=== PATIENT | male | born 1940 | race Caucasian/White ===

== ENCOUNTER 2017-01-18 05:28 | Inpatient (IN) | payer OTHER, MEDICARE ==
[~2017-01-18] VITALS: Ht 167.6 cm; Wt 82.7 kg
[2017-01-18] VITALS (8 sets, daily range): BP systolic 110–169; BP diastolic 58–82; PULSE 55–86; RESP 15–20; TEMP 96–98.6; O2SAT 96–99
[~2017-01-18 05:28] MED LIST: APIX2.5T PO; ATEN-104 PO; ATOR80TA PO; BECL80AE3 INH; CO Q100C9 PO; ENAL10TA7 PO; EZET10 PO; FAMO40TA PO; FISH1000 PO; GLUC500C3 PO; IMDU120T PO; NORC7.5T PO; Z.0.COMMODE-3:1; Z.0.CPM; Z.0.WALKERFRONT
[2017-01-18] MEDS ORDERED: ONDANSETRON HCL 4 MG/2 ML VIAL IVP ONE (05:45)
[2017-01-18] MEDS ORDERED: MORPHINE SULFATE 4 MG/ML INJ IV PUSH ONE ×2 (05:45→06:15)
[2017-01-18] MEDS ORDERED: SODIUM CHLORIDE 0.9% FLUSH 10 ML FLUSH IV FLUSH PRN ×2 (05:45→07:00)
--- NOTE | 2017-01-18 05:52 | PD ---
HPI Chief Complaint: Abdominal Pain Time Seen by Provider: 05:39 Travel History International Travel<30 days: No Contact w/Intl Traveler<30days: No Traveled to known affect area: No History of Present Illness HPI 76-year-old male presents to the emergency department for complaint of severe abdominal pain radiating to his back that awakened him from sleep with associated diaphoresis. No shortness of breath no chest pain no neck jaw back shoulder arm pain. Patient has history of CAD hypertension dyslipidemia and previous CABG. Patient has family history of aneurysm in his father and is seen frequently for evaluation of aneurysm--patient himself is not diagnosed with abdominal aortic aneurysm. Patient is unable to identify exacerbating or alleviating factors. Patient denies known history of gallstones, biliary colic , peptic ulcer disease, gastritis, pancreatitis, or diverticulitis. Patient denies eating fried or fatty foods at dinner time. Patient went to bed at 11 PM feeling well. Patient's had no fever or chills. Patient denies any vomiting or black or tarry or bloody stools. Patient is unable to identify exacerbating or alleviating factors. Patient does take aspirin and no other anticoagulants. Patient is a nonsmoker of cigarettes and rarely drinks alcoholic beverages. Recent travel from [place] otherwise no long distance travel protracted bedrest or surgical procedure. No history of clotting disorder. No report of dietary indiscretion, well water ingestion, or foreign travel. PFSH Past Medical History Narrative Medical CAD CABG right carotid and no doctor me hypertension dyslipidemia arthritis cataract surgery knee surgery no tobacco use nursing notes reviewed Cancer: No Cardiovascular Problems: Yes (cad) Diabetes: No Endocrine: No Genitourinary: No Hepatitis: No Hiatal Hernia: No Immune Disorder: No Musculoskeletal: Yes (arthritis) Neurologic: No Psychiatric: No Reproductive: No Respiratory: Yes Thyroid Disease: No Past Surgical History Abdominal Surgery: No AICD: No Body Medical Devices: left knee could be a small piece of hardware Cardiac Surgery: Yes (x4 cardiac by-pass surgery) Ear Surgery: Yes (KADEN. 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 CRAZY Uncoded Allergies: vee (Allergy, Unknown, upset stomach, 09/30/15) Reported Meds & Prescriptions Reported Meds & Active Scripts Active Reported Co Q 10 (Coenzyme Q10 (Ubidecarenone)) 100 Mg-5 Unit Cap 100 Mg PO DAILY Vitamin D3 (Cholecalciferol) 1,000 Unit Tab 1,000 Units PO DAILY Calcium 600 with Vitamin D (Calcium Carbonate-Cholecalciferol) 600-400 mg-Unit Tab 1 Tab PO DAILY Aspirin 81 Mg Chew 162 Mg CHEW DAILY Qvar Inh (Beclomethasone Dipropionate) 80 Mcg/Act Aero 1 Puff INH BID Famotidine 40 Mg Tab 40 Mg PO HS Atorvastatin (Atorvastatin Calcium) 80 Mg Tab 80 Mg PO HS Zetia (Ezetimibe) 10 Mg Tab 10 Mg PO DAILY Atenolol 100 Mg Tab 100 Mg PO DAILY Enalapril (Enalapril Maleate) 10 Mg Tab 10 Mg PO DAILY Isosorbide Mononitrate ER (Isosorbide Mononitrate) 120 Mg Hannah 120 Mg PO DAILY Review of Systems Except as stated in HPI: all other systems reviewed are Neg General / Constitutional: No: Fever, Chills HENT: No: Congestion Cardiovascular: No: Chest Pain or Discomfort Respiratory: No: Shortness of Breath Gastrointestinal: Positive: Nausea, Abdominal Pain, No: Vomiting, Diarrhea, Hematemesis, Hematochezia, Loss of Appetite Genitourinary: No: Dysuria, Flank Pain Musculoskeletal: No: Pain Skin: No Rash Neurologic: No: Weakness, Dizziness, Syncope Psychiatric: Positive: Anxiety Hematologic/Lymphatic: No: Easy Bruising Physical Exam Narrative GENERAL: Well-developed well-nourished male in obvious discomfort no respiratory distress SKIN: Warm and dry. HEAD: Normocephalic. EYES: No scleral icterus. No injection or drainage. NECK: Supple, trachea midline. No JVD or lymphadenopathy. CARDIOVASCULAR: Regular rate and rhythm without murmurs, gallops, or rubs. RESPIRATORY: Breath sounds equal bilaterally. No accessory muscle use. GASTROINTESTINAL: Abdomen soft, marked epigastric tenderness to direct palpation --exacerbates and reproduces the pain of presentation, voluntary guarding or rebound, nondistended. No palpable pulsatile mass. MUSCULOSKELETAL: No cyanosis, or edema. BACK: Nontender without obvious deformity. No CVA tenderness. Data Data Last Documented VS Vital Signs Date Time Temp Pulse Resp B/P (MAP) Pulse Ox O2 Delivery O2 Flow Rate FiO2 01/18/17 06:46 20 01/18/17 05:59 55 117/58 (77) 99 2.00 110/59 (76) 01/18/17 05:33 97.5 Orders Orders Complete Blood Count With Diff (01/18/17 05:39) Comprehensive Metabolic Panel (01/18/17 05:39) Lipase (01/18/17 05:39) Lactic Acid (01/18/17 05:39) Urinalysis - C+S If Indicated (01/18/17 05:39) Ct Abd/Pel W Iv Contrast(Rout) (01/18/17 05:39) Iv Access Insert/Monitor (01/18/17 05:39) Ecg Monitoring (01/18/17 05:39) Oximetry (01/18/17 05:39) Ondansetron Inj (Zofran Inj) (01/18/17 05:45) Sodium Chloride 0.9% Flush (Ns Flush) (01/18/17 05:45) Electrocardiogram (01/18/17 05:39) Chest, Single Ap (01/18/17 05:39) Sodium Chlor 0.9% 1000 Ml Inj (Ns 1000 M (01/18/17 05:45) Troponin I (01/18/17 05:39) Morphine Inj (Morphine Inj) (01/18/17 05:45) Blood Culture (01/18/17 05:57) Act Partial Throm Time (Ptt) (01/18/17 05:58) Prothrombin Time / Inr (Pt) (01/18/17 05:58) Ckmb (Isoenzyme) Profile (01/18/17 05:55) Magnesium (Mg) (01/18/17 05:55) Sodium Chlorid 0.9% 500 Ml Inj (Ns 500 M (01/18/17 06:15) Morphine Inj (Morphine Inj) (01/18/17 06:15) Pantoprazole Inj (Protonix Inj) (01/18/17 06:15) Iohexol 350 Inj (Omnipaque 350 Inj) (01/18/17 06:40) NPO (01/18/17 06:41) Sodium Chlor 0.9% 1000 Ml Inj (Ns 1000 M (01/18/17 07:00) Admit To Inpatient (01/18/17 ) Vital Signs (Adult) Q4H (01/18/17 06:52) Activity Oob With Assistance (01/18/17 06:52) Diet Npo (01/18/17 Breakfast) Sodium Chlor 0.9% 1000 Ml Inj (Ns 1000 M (01/18/17 06:52) Sodium Chloride 0.9% Flush (Ns Flush) (01/18/17 07:00) Sodium Chloride 0.9% Flush (Ns Flush) (01/18/17 09:00) Acetaminophen (Tylenol) (01/18/17 07:00) Ondansetron Inj (Zofran Inj) (01/18/17 07:00) Basic Metabolic Panel (Bmp) (01/19/17 06:00) Complete Blood Count With Diff (01/19/17 06:00) Heparin Inj (Heparin Inj) (01/18/17 07:00) Naloxone Inj (Narcan Inj) (01/18/17 07:00) Docusate Sodium-Senna (Elisa-Colace) (01/18/17 09:00) Magnesium Hydroxide Liq (Milk Of Magnesi (01/18/17 07:00) Sennosides (Senokot) (01/18/17 07:00) Bisacodyl Supp (Dulcolax Supp) (01/18/17 07:00) Lactulose Liq (Lactulose Liq) (01/18/17 07:00) Inpatient Certification (01/18/17 ) Lipase (01/19/17 06:00) Admit Order (Ed Use Only) (01/18/17 ) Board Certified Family Physician / Telemetry [email or web address].Q8H (01/18/17 06:52) Activity Oob With Assistance (01/18/17 06:52) Notify Dr: Other (01/18/17 06:52) Labs Laboratory Tests Test 01/18/17 05:55 01/18/17 06:00 White Blood Count 11.1 TH/MM3 Red Blood Count 5.06 MIL/MM3 Hemoglobin 15.2 GM/DL Hematocrit 46.5 % Mean Corpuscular Volume 91.9 FL Mean Corpuscular Hemoglobin 30.0 PG Mean Corpuscular Hemoglobin Concent 32.6 % Red Cell Distribution Width 12.2 % Platelet Count 217 TH/MM3 Mean Platelet Volume 9.4 FL Neutrophils (%) (Auto) 47.6 % Lymphocytes (%) (Auto) 20.5 % Monocytes (%) (Auto) 5.2 % Eosinophils (%) (Auto) 25.6 % Basophils (%) (Auto) 1.1 % Neutrophils # (Auto) 5.3 TH/MM3 Lymphocytes # (Auto) 2.3 TH/MM3 Monocytes # (Auto) 0.6 TH/MM3 Eosinophils # (Auto) 2.8 TH/MM3 Basophils # (Auto) 0.1 TH/MM3 CBC Comment DIFF FINAL Differential Comment Blood Urea Nitrogen 16 MG/DL Creatinine 0.83 MG/DL Random Glucose 116 MG/DL Total Protein 7.2 GM/DL Albumin 3.4 GM/DL Calcium Level 8.9 MG/DL Magnesium Level 2.1 MG/DL Alkaline Phosphatase 121 U/L Aspartate Amino Transf (AST/SGOT) 52 U/L Alanine Aminotransferase (ALT/SGPT) 43 U/L Total Bilirubin 0.5 MG/DL Sodium Level 143 MEQ/L Potassium Level 4.1 MEQ/L Chloride Level 108 MEQ/L Carbon Dioxide Level 26.1 MEQ/L Anion Gap 9 MEQ/L Estimat Glomerular Filtration Rate 90 ML/MIN Lactic Acid Level 1.3 mmol/L Total Creatine Kinase 75 U/L Troponin I LESS THAN 0.02 NG/ML Lipase 31052 U/L Prothrombin Time 11.5 SEC Prothromb Time International Ratio 1.1 RATIO Activated Partial Thromboplast Time 25.5 SEC [facility] Medical Decision Making Medical Screen Exam Complete: Yes Emergency Medical Condition: Yes Medical Record Reviewed: Yes Interpretation(s) EKG sinus bradycardia rate [address] elevation or injury pattern change or ectopy noted age-indeterminate Q-wave inferiorly with poor R progression anteriorly V3 V4 Chest x-ray: No acute process no subdiaphragmatic free air no effusion no infiltrate no pneumothorax Lipase: 21,506, elevated Troponin I: Less than 0.02, not elevated; ck: 75, not elevated Lactic: 1.3, not elevated Chest x-ray per reading radiologist reviewed by me shows no acute abnormality CT a/p: pending Differential Diagnosis Abdominal pain ACS AK abdominal aortic aneurysm dissection pancreatitis choledocholithiasis cholecystitis, PUD Narrative Course Patient with history monitoring specialist IV access obtained specimens collected and EKG performed which shows sinus rhythm with no acute ST elevation or injury pattern age-indeterminate Q wave inferiorly in 3 and aVF as well as poor R progression wave progression anteriorly V3 and V4 Q wave in V4 V5. 6:25 AM lipase is resulted at 21,587 markedly elevated LFTs minorly elevated transaminases total bilirubin is within normal limits; gyroscope technician is a bedside taking patient to imaging. Physician Communication Physician Communication call placed to [facility] service -- discussed with Dr Watson --will admit to [facility] service --aware CT reading pending Diagnosis Primary Impression: Pancreatitis, acute Admitting Information Admitting Physician Requests: Admit Lina Wing MD Jan 18, 2017 05:52
[2017-01-18] MEDS: SODIUM CHLOR 0.9% 1000 ML INJ 1,000 ML IV SCH ×4 (05:58→09:34)
[2017-01-18 06:04] LABS: AUTOMATED NEUTROPHIL # 5.3 TH/MM3 (1.8-7.7); BASOPHIL # 0.1 TH/MM3 (0-0.2); BASOPHIL % 1.1 % (0.0-2.0); EOSINOPHIL # 2.8 TH/MM3 (0-0.4); EOSINOPHIL % 25.6 % (0.0-4.0); HEMATOCRIT 46.5 % (39.0-51.0); HEMO FLAGS DIFF FINAL; LYMPH % 20.5 % (9.0-44.0); LYMPHOCYTE # 2.3 TH/MM3 (1.0-4.8); MEAN CELL VOLUME 91.9 FL (80.0-100.0); MEAN CORPUSCULAR HGB CONC 32.6 % (32.0-36.0); MONO % 5.2 % (0.0-8.0); NEUT % 47.6 % (16.0-70.0); PLATELET COUNT 217 TH/MM3 (150-450); RED BLOOD COUNT 5.06 MIL/MM3 (4.50-5.90); RED CELL DISTRIBUTION WIDTH 12.2 % (11.6-17.2); WHITE BLOOD COUNT 11.1 TH/MM3 (4.0-11.0)
[2017-01-18 06:15] LABS: CHLORIDE 108 MEQ/L (98-107); POTASSIUM 4.1 MEQ/L (3.5-5.1); SODIUM (NA) 143 MEQ/L (136-145)
[2017-01-18] MEDS ORDERED: PANTOPRAZOLE SODIUM 40 MG VIAL IV PUSH ONE (06:15)
[2017-01-18] MEDS ORDERED: SODIUM CHLORID 0.9% 500 ML INJ 500 ML IV ONE (06:15)
[2017-01-18 06:18] LABS: ANION GAP 9 MEQ/L (5-15); BICARBONATE 26.1 MEQ/L (21.0-32.0); BLOOD UREA NITROGEN 16 MG/DL (7-18); MAGNESIUM 2.1 MG/DL (1.5-2.5)
[2017-01-18 06:21] LABS: ALT (GPT) 43 U/L (12-78); AST (GOT) 52 U/L (15-37); GLOMERULAR FILTRATION RATE 90 ML/MIN (>89)
[2017-01-18 06:23] LABS: TOTAL BILIRUBIN ADULT 0.5 MG/DL (0.2-1.0)
[2017-01-18 06:24] LABS: ALKALINE PHOSPHATASE 121 U/L (45-117)
[2017-01-18 06:25] LABS: APTT (PATIENT) 25.5 SEC (24.3-30.1); INTERNATIONAL NORMALIZED RATIO 1.1 RATIO; PROTHROMBIN TIME - PATIENT 11.5 SEC (9.8-11.6)
[2017-01-18] MEDS ORDERED: FISHCAP4 PO (06:26)
[2017-01-18] MEDS ORDERED: CALC1TAB87 PO (06:26)
[2017-01-18] MEDS ORDERED: FAMO40TA PO (06:26)
[2017-01-18] MEDS ORDERED: ATOR80TA45 PO (06:26)
[2017-01-18] MEDS ORDERED: CO Q100C9 PO (06:26)
[2017-01-18] MEDS ORDERED: EZET10 PO (06:26)
[2017-01-18] MEDS ORDERED: ASPI-516 CHEW (06:26)
[2017-01-18] MEDS ORDERED: ENAL10TA PO (06:26)
[2017-01-18] MEDS ORDERED: VITA100018 PO (06:26)
[2017-01-18] MEDS ORDERED: ATEN100T PO (06:26)
[2017-01-18] MEDS ORDERED: BECL80AE3 INH (06:26)
[2017-01-18] MEDS ORDERED: ISOS120T PO (06:26)
[2017-01-18] MEDS ORDERED: IOHEXOL 350 MG/ML 10 ML VIAL (for RAD DIAG) IVCONTRAST ONE (06:40)
[2017-01-18 06:43] LABS: CREATINE KINASE 75 U/L (39-308)
--- NOTE | 2017-01-18 06:53 | RADRPT ---
EXAM DATE/TIME: 01/18/2017 06:02 [facility] COMPARISON: No previous studies available for comparison. INDICATIONS : Chest pain. MEDICAL HISTORY : Chronic obstructive pulmonary disease. SURGICAL HISTORY : CABG. ENCOUNTER: Initial ACUITY: 1 day PAIN SCORE: 6/10 LOCATION: Bilateral lower chest FINDINGS: A single view of the chest demonstrates the lungs to be symmetrically aerated without evidence of mas s, infiltrate or effusion. The cardiomediastinal contours are unremarkable. Osseous structures are intact. Prior median sternotomy and CABG. CONCLUSION: The lungs are clear. Alvin Waggoner MD on January 18, 2017 at 6:52 Board Certified Radiologist. This report was verified electronically.
--- NOTE | 2017-01-18 06:58 | RADRPT ---
EXAM DATE/TIME: 01/18/2017 06:28 [facility] COMPARISON: No previous studies available for comparison. INDICATIONS : Mid abdominal pain. IV CONTRAST: 100 cc Omnipaque 350 (iohexol) IV ORAL CONTRAST: No oral contrast ingested. RADIATION DOSE: 13.58 CTDIvol (mGy) MEDICAL HISTORY : Hypertension. Gastroesophageal reflux disease. Cardiovascular disease SURGICAL HISTORY : CABG ENCOUNTER: Initial ACUITY: 1 day PAIN SCALE: 7/10 LOCATION: middle abdomen TECHNIQUE: Volumetric scanning of the abdomen and pelvis was performed. Using automated exposure control and ad justment of the mA and/or kV according to patient size, radiation dose was kept as low as reasonably achievable to obtain optimal diagnostic quality images. DICOM format image data is available electro nically for review and comparison. FINDINGS: LOWER LUNGS: Mild right basilar atelectasis. LIVER: Homogeneous density without lesion. There is no dilation of the biliary tree. No calcified gallston es; mildly distended gallbladder. SPLEEN: Normal size without lesion. PANCREAS: Within normal limits. KIDNEYS: Normal in size and shape. There is no mass, stone or hydronephrosis. Bilateral renal cysts, the lar emily on the left side measures 3.3 cm. ADRENAL GLANDS: Within normal limits. VASCULAR: There is no aortic aneurysm. Prominent wall calcification. BOWEL/MESENTERY: No dilated loops of small or large bowel. Mild amount of stool throughout the colon. ABDOMINAL WALL: Within normal limits. RETROPERITONEUM: There is no lymphadenopathy. BLADDER: No wall thickening or mass. REPRODUCTIVE: Within normal limits. INGUINAL: Small fat containing right inguinal hernia. MUSCULOSKELETAL: Degenerative change lower lumbar spine. CONCLUSION: 1. Mild constipation without dilated small bowel loops. 2. Mildly distended gallbladder without calcified stones. Alvin Waggoner MD on January 18, 2017 at 6:52 Board Certified Radiologist. This report was verified electronically.
[2017-01-18] MEDS ORDERED: BISACODYL 10 MG SUPP RECTAL PRN (07:00)
[2017-01-18] MEDS ORDERED: SODIUM CHLOR 0.9% 1000 ML INJ 1,000 ML IV ONE (07:00)
[2017-01-18] MEDS ORDERED: MAGNESIUM HYDROXIDE SUSP 30 ML CUP PO PRN (07:00)
[2017-01-18] MEDS ORDERED: ONDANSETRON HCL 4 MG/2 ML VIAL IVP PRN (07:00)
[2017-01-18] MEDS ORDERED: ACETAMINOPHEN 325 MG TAB PO PRN (07:00)
[2017-01-18] MEDS ORDERED: NALOXONE HCL 0.4 MG/ML AMP IV PUSH PRN (07:00)
[2017-01-18] MEDS ORDERED: LACTULOSE SYRUP 20 GM/30 ML CUP PO PRN (07:00)
[2017-01-18] MEDS ORDERED: SENNOSIDES 8.6 MG TAB PO PRN (07:00)
[2017-01-18] MEDS ORDERED: HEPARIN SODIUM - SQ 10,000 UNITS/ML VIAL SQ SCH ×2 (07:00→09:00)
[2017-01-18] MEDS: DOCUSATE SODIUM 50 MG/SENNA 8.6 MG TAB PO SCH ×2 (09:00→21:50)
[2017-01-18] MEDS: SODIUM CHLORIDE 0.9% FLUSH 10 ML FLUSH IV FLUSH SCH ×2 (09:34→21:00)
[2017-01-18 10:34] LABS: GLUCOSE,URINE NEG (NEG); KETONE, URINE NEG (NEG); NITRITE,URINE NEG (NEG)
[2017-01-18 10:41] LABS: BLOOD, URINE TRACE (NEG); METHOD OF COLLECTION CLEAN CATCH; URINE COLOR YELLOW (YELLW/STRAW)
[2017-01-18 10:42] LABS: COMMENT (UR) CULT NOT INDICATED; CULTURE IF INDICATED CULT NOT INDICATED; RBC, URINE 0-3 /hpf (0-3); SQUAMOUS EPITHELIAL CELL URINE 0-5 /hpf (0-5); WBC, URINE 0-2 /hpf (0-5)
--- NOTE | 2017-01-18 12:40 | HHI.HP ---
[facility] Edison Martinez MD Admission Diagnosis acute pancreatitis Diagnoses: (1) Pancreatitis, acute Chief Complaint: Severe abdominal pain Travel History International Travel<30 Days: No Contact w/Intl Traveler <30 Da: No Traveled to Known Affected Are: No History of Present Illness Written by Ameena Shore, acting as scribe for Dr. Leigh on 01/18/17 at 12:28. Mr. Adair is a pleasant 76-year-old male patient with a known medical history of CAD with history of CABG, HTN, dyslipidemia who presented to the ED with complaints of severe abdominal pain. Patient states that around 0400 this morning while he was awoken out of sleep due to a severe mid-epigastric abdominal pain. The pain is located in his mid-epigastric area radiating to the right upper and lower quadrant. Positive Ross's sign present. Denies any associated nausea, vomiting or shortness of breath. Does admit to becoming diaphoretic when the pain began. He states that the pain lasted roughly an hour and a half until he presented to the ED and was given IV Morphine. Patient denies any history of GI complaints of disease. At the time of assessment patient states that the pain has slightly improved with medication and rest. Denies any recent illness including fevers, chills, headache, chest pain, shortness of breath, dysuria. Patient denies any changes in medications. Denies any recent alcohol use, states at most he drinks 2 beers a year. Denies any recent diarrhea or hematochezia. Denies any changes in food intake or appetite. Has been eating and drinking well. Patient does follow with Dr. Mcgill for his preventative screening and is to undergo a colonoscopy scheduled for Sunday next week. Review of Systems Constitutional: DENIES: Fever, Chills Eyes: DENIES: Blurred vision, Diplopia Respiratory: DENIES: Shortness of breath Cardiovascular: DENIES: Chest pain Gastrointestinal: COMPLAINS OF: Abdominal pain, DENIES: Black stools, Bloody stools, Constipation, Diarrhea, Nausea, Vomiting Musculoskeletal: DENIES: Joint pain, Back pain Psychiatric: DENIES: Anxiety Except as stated in HPI: all other systems reviewed are Neg Past Family Social History Past Medical History Carotid artery stenosis Hyperlipidemia Coronary artery disease Allergic rhinitis Hypertension History of [place] COPD Insomnia Glaucoma Past Surgical History Right carotid endarterectomy CABG 4 Right arm surgery Colonoscopy Reported Medications Active Reported Co Q 10 (Coenzyme Q10 (Ubidecarenone)) 100 Mg-5 Unit Cap 100 Mg PO DAILY Vitamin D3 (Cholecalciferol) 1,000 Unit Tab 1,000 Units PO DAILY Calcium 600 with Vitamin D (Calcium Carbonate-Cholecalciferol) 600-400 mg-Unit Tab 1 Tab PO DAILY Aspirin 81 Mg Chew 162 Mg CHEW DAILY Qvar Inh (Beclomethasone Dipropionate) 80 Mcg/Act Aero 1 Puff INH BID Famotidine 40 Mg Tab 40 Mg PO HS Atorvastatin (Atorvastatin Calcium) 80 Mg Tab 80 Mg PO HS Zetia (Ezetimibe) 10 Mg Tab 10 Mg PO DAILY Atenolol 100 Mg Tab 100 Mg PO DAILY Enalapril (Enalapril Maleate) 10 Mg Tab 10 Mg PO DAILY Isosorbide Mononitrate ER (Isosorbide Mononitrate) 120 Mg Hannah 120 Mg PO DAILY Allergies: Coded Allergies: meperidine (Unverified Allergy, Severe, NAUSEA/VOMITING, 09/19/16) STATES HE GOES CRAZY Uncoded Allergies: vee (Allergy, Unknown, upset stomach, 09/30/15) Active Ordered Medications Current Medications Medications (Trade) Dose Ordered Sig/Drake Route Start Time Stop Time Status Last Admin (NS Flush) 2 ml UNSCH PRN IV FLUSH 01/18/17 05:45 Sodium Chloride 1,000 ml @ 100 mls/hr Q10H IV 01/18/17 05:45 01/18/17 06:53 (NS Flush) 2 ml UNSCH PRN IV FLUSH 01/18/17 07:00 (NS Flush) 2 ml BID IV FLUSH 01/18/17 09:00 01/18/17 09:34 (Tylenol) 650 mg Q4H PRN PO 01/18/17 07:00 (Zofran Inj) 4 mg Q6H PRN IVP 01/18/17 07:00 (Narcan Inj) 0.4 mg UNSCH PRN IV PUSH 01/18/17 07:00 (Elisa-Colace) 1 tab BID PO 01/18/17 09:00 (Milk Of Magnesia Liq) 30 ml Q12H PRN PO 01/18/17 07:00 (Senokot) 17.2 mg Q12H PRN PO 01/18/17 07:00 (Dulcolax Supp) 10 mg DAILY PRN RECTAL 01/18/17 07:00 (Lactulose Liq) 30 ml DAILY PRN PO 01/18/17 07:00 (Heparin Inj) 5,000 units Q12HR SQ 01/18/17 09:00 Family History Father had AAA. Mother had stroke, heart disease. Social History Patient quit smoking in the 1970s. Denies illicit drug use. Reports rare alcohol use, roughly 2 beers a year. Physical Exam Vital Signs Vital Signs Date Time Temp Pulse Resp B/P (MAP) Pulse Ox O2 Delivery O2 Flow Rate FiO2 01/18/17 08:10 01/18/17 08:10 62 16 150/82 (104) 97 Room Air 01/18/17 08:00 96.4 68 15 135/74 (94) 97 01/18/17 07:18 16 01/18/17 07:18 16 01/18/17 07:05 16 01/18/17 07:05 16 98 Room Air 01/18/17 07:05 67 16 136/63 (87) 98 Room Air 01/18/17 06:46 20 01/18/17 05:59 55 20 117/58 (77) 99 2.00 110/59 (76) 01/18/17 05:33 97.5 59 16 148/66 (93) 97 Physical Exam GENERAL: This is a well-nourished, well-developed elderly male patient, lying in bed in no apparent distress. SKIN: No rashes, ecchymoses or lesions. Warm and dry. HEAD: Atraumatic. Normocephalic. Pupils equal round and reactive. Extraocular motions intact. No scleral icterus. No injection or drainage. Nose without bleeding. Airway patent. NECK: Trachea midline. No JVD. Supple. CARDIOVASCULAR: Regular rate and rhythm without murmurs, gallops, or rubs. RESPIRATORY: Clear to auscultation. Breath sounds equal bilaterally. No wheezes , rales, or rhonchi. GASTROINTESTINAL: Abdomen soft, nondistended. Positive Ross's sign. No guarding. Active bowel sounds x 4 quadrants. Pain to palpation in mid- epigastric area. MUSCULOSKELETAL: Extremities without clubbing, cyanosis, or edema. No joint tenderness, effusion, or edema noted. NEUROLOGICAL: Awake and alert. Cranial nerves II through XII intact. Motor and sensory grossly within normal limits. Five out of 5 muscle strength in all muscle groups. Normal speech. Laboratory Laboratory Tests Test 01/18/17 05:55 01/18/17 06:00 01/18/17 10:10 White Blood Count 11.1 Red Blood Count 5.06 Hemoglobin 15.2 Hematocrit 46.5 Mean Corpuscular Volume 91.9 Mean Corpuscular Hemoglobin 30.0 Mean Corpuscular Hemoglobin Concent 32.6 Red Cell Distribution Width 12.2 Platelet Count 217 Mean Platelet Volume 9.4 Neutrophils (%) (Auto) 47.6 Lymphocytes (%) (Auto) 20.5 Monocytes (%) (Auto) 5.2 Eosinophils (%) (Auto) 25.6 Basophils (%) (Auto) 1.1 Neutrophils # (Auto) 5.3 Lymphocytes # (Auto) 2.3 Monocytes # (Auto) 0.6 Eosinophils # (Auto) 2.8 Basophils # (Auto) 0.1 CBC Comment DIFF FINAL Differential Comment Blood Urea Nitrogen 16 Creatinine 0.83 Random Glucose 116 Total Protein 7.2 Albumin 3.4 Calcium Level 8.9 Magnesium Level 2.1 Alkaline Phosphatase 121 Aspartate Amino Transf (AST/SGOT) 52 Alanine Aminotransferase (ALT/SGPT) 43 Total Bilirubin 0.5 Sodium Level 143 Potassium Level 4.1 Chloride Level 108 Carbon Dioxide Level 26.1 Anion Gap 9 Estimat Glomerular Filtration Rate 90 Lactic Acid Level 1.3 Total Creatine Kinase 75 Troponin I LESS THAN 0.02 Lipase 48556 Prothrombin Time 11.5 Prothromb Time International Ratio 1.1 Activated Partial Thromboplast Time 25.5 Urine Collection Type CLEAN CATCH Urine Color YELLOW Urine Turbidity CLEAR Urine pH 5.0 Urine Specific [place] 1.005 Urine Protein NEG Urine Glucose (UA) NEG Urine Ketones NEG Urine Occult Blood TRACE Urine Nitrite NEG Urine Bilirubin NEG Urine Leukocyte Esterase NEG Urine RBC 0-3 Urine WBC 0-2 Urine Squamous Epithelial Cells 0-5 Microscopic Urinalysis Comment CULT NOT INDICATED Urine Collection Time 10:10 Date/Time Source Procedure Growth Status 01/18/17 06:00 Blood Peripheral Aerobic Blood Culture Pending Received 01/18/17 06:00 Blood Peripheral Anaerobic Blood Culture Pending Received Result Diagram: 01/18/17 0555 01/18/17 0555 Imaging Last Impressions Chest X-Ray 01/18/1739 Signed Impressions: Service Date/Time: January 06:02 - CONCLUSION: The lungs are clear. Alvin Waggoner MD Abdomen/Pelvis CT 01/18/1739 Signed Impressions: Service Date/Time: January 06:28 - CONCLUSION: 1. Mild constipation without dilated small bowel loops. 2. Mildly distended gallbladder without calcified stones. Alvin Waggoner MD Septic Shock Reassessment Septic shock perfusion: reassessment completed Caprini VTE Risk Assessment Caprini VTE Risk Assessment: Mod/High Risk (score >= 2) Caprini Risk Assessment Model Point Value = 1 Point Value = 2 Point Value = 3 Point Value = 5 Age 41-60 Minor surgery BMI > 25 kg/m2 Swollen legs Varicose veins or History of unexplained or recurrent spontaneous Oral contraceptives or hormone replacement Sepsis (< 1 month) Serious lung disease, including pneumonia (< 1 month) Abnormal pulmonary function Acute myocardial infarction Congestive heart failure (< 1 month) History of inflammatory bowel disease Medical patient at bed rest Age 61-74 Arthroscopic surgery Major open surgery (> 45 min) Laparoscopic surgery (> 45 min) Malignancy Confined to bed (> 72 hours) Immobilizing plaster cast Central venous access Age >= 75 History of VTE Family history of VTE Factor V Leiden Prothrombin [id number] Lupus anticoagulant Anticardiolipin antibodies Elevated serum homocysteine Heparin-induced thrombocytopenia Other congenital or acquired thrombophilia Stroke (< 1 month) Elective arthroplasty Hip, pelvis, or leg fracture Acute spinal cord injury (< 1 month) Prophylaxis Regimen Total Risk Factor Score Risk Level Prophylaxis Regimen 0-1 Low Early ambulation 2 Moderate Order ONE of the following: *Sequential Compression Device (SCD) *Heparin 5000 units SQ BID 3-4 Higher Order ONE of the following medications: *Heparin 5000 units SQ TID *Enoxaparin/Lovenox 40 mg SQ daily (WT < 150 kg, CrCl > 30 mL/min) *Enoxaparin/Lovenox 30 mg SQ daily (WT < 150 kg, CrCl > 10-29 mL/min) *Enoxaparin/Lovenox 30 mg SQ BID (WT < 150 kg, CrCl > 30 mL/min) AND/OR *Sequential Compression Device (SCD) 5 or more Highest Order ONE of the following medications: *Heparin 5000 units SQ TID (Preferred with Epidurals) *Enoxaparin/Lovenox 40 mg SQ daily (WT < 150 kg, CrCl > 30 mL/min) *Enoxaparin/Lovenox 30 mg SQ daily (WT < 150 kg, CrCl > 10-29 mL/min) *Enoxaparin/Lovenox 30 mg SQ BID (WT < 150 kg, CrCl > 30 mL/min) AND *Sequential Compression Device (SCD) Assessment and Plan Problem List: (1) Pancreatitis, acute ICD Code: K85.90 - Acute pancreatitis without necrosis or infection, unspecified Status: Acute Plan: Nonalcoholic related, suspect secondary to gallbladder CT reviewed showing mild constipation without dilated small bowel loops. Mildly distended gallbladder without calcified stones. CXR reviewed showing clear lungs. Keep NPO. Rest bowel. Status post 2.5 L NS bolus in ED. Protonix 40 IV x 1 given in ED. Ensure hydration, continue IVF. Control pain, Morphine IV available PRN if needed. Blood cultures pending, follow. Afebrile. Will obtain gallbladder ultrasound and follow. (2) Hypertension ICD Code: I10 - Essential (primary) hypertension Status: Chronic Plan: Controlled at this time. Continue home medications. Monitor BP trends. (3) Hyperlipidemia ICD Code: E78.5 - Hyperlipidemia, unspecified Status: Chronic Plan: Will hold cholesterol home medications for now, will assess gallbladder. Rest bowel. (4) Coronary artery disease ICD Code: I25.10 - Atherosclerotic heart disease of [place] coronary artery without angina pectoris Status: Chronic Plan: Continue home Aspirin. DVT Prophylaxis: SCDs. Heparin. Physician Certification 2 Midnight Certification Type: Admission for Inpatient Services Order for Inpatient Services The services are ordered in accordance with Medicare regulations or non- Medicare payer requirements, as applicable. In the case of services not specified as inpatient-only, they are appropriately provided as inpatient services in accordance with the 2-midnight benchmark. Estimated LOS (days): 2 2 days is the estimated time the patient will need to remain in the hospital, assuming treatment plan goals are met and no additional complications. Post-Hospital Plan: Home Medical Decision Making Impression and Plan This note was transcribed by tunde [[email or web address]]. I, Dr. Eleanor Leigh personally performed the history, physical exam, and medical decision making; and confirmed the accuracy of the information in the transcribed note. discussed with patient and spouse at bedside Authenticated by Dr. Eleanor Leigh on 01/18/17 at 13:00. Ameena Shore Jan 18, 2017 12:39 Eleanor Leigh MD Jan 18, 2017 13:00
--- NOTE | 2017-01-18 15:13 | EKG ---
Date Performed: 01/18/2017 Time Performed: 05:45:23 PTAGE: 76 years EKG: SINUS BRADYCARDIA ANTERIOR MYOCARDIAL INFARCTION POSSIBLE INFERIOR MYOCARDIAL INFARCTION AB NORMAL ECG INTERPRETATION BASED ON A DEFAULT AGE OF 40 YEARS Nonspecific inferolateral T-wave changes PREVIOUS TRACING 04/18/12 Since the prior tracing, there has been no significant serial c hange. DOCTOR: Laura Peters Interpretating Date/Time 01/18/2017 15:12:27
--- NOTE | 2017-01-18 16:29 | RADRPT ---
EXAM DATE/TIME: 01/18/2017 20:15 [place] COMPARISON: CT ABDOMEN & PELVIS W CONTRAST, January 18, 2017, 6:28. INDICATIONS : Right upper quadrant pain. MEDICAL HISTORY : Myocardial infarction. Hypercholesterolemia. Chronic obstructive pulmonary disease. Hearing loss. Hyp ertension. Gastroesophageal reflux disease. Coronary artery disease. Asthma. Arthritis. Blood transfu kristen. SURGICAL HISTORY : Bilateral cataract removal. CABG. Cardiac cath. Right arm surgery. Right foot surgery. Total right kn ee replacement. Right carotid endarterectomy. ENCOUNTER: Initial ACUITY: 1 day PAIN SCORE: 3/10 LOCATION: Right upper quadrant MEASUREMENTS: LIVER: 14.7 cm length COMMON DUCT: 5 mm RIGHT KIDNEY: 12.0 x 5.1 x 6.5 cm FINDINGS: LIVER: Small in size with lobulated contour. No significant intrahepatic ductal dilatation or focal mass. Ma in portal vein is patent and hepatopedal. COMMON DUCT: No intraluminal mass or stone visualized. GALLBLADDER: Gallbladder is moderately distended with gallbladder wall thickening and trace pericholecystic fluid. No definite gallstone or other luminal debris. PANCREAS: The visualized portions are within normal limits. RIGHT KIDNEY: Small right renal cyst similar to recent CT exam. Otherwise, no evidence for hydronephrosis or stone. CONCLUSION: 1. Distended gallbladder with gallbladder wall thickening and trace pericholecystic fluid. No definit e gallstone or significant sludge. No significant biliary ductal dilatation. The findings are somewha t nonspecific but can not exclude acute acalculous cholecystitis. Consider HIDA scan if there is cont inued clinical concern to evaluate for cystic duct patency. 2. Small nearly cirrhotic appearing liver. Gopi Marroquin MD on January 18, 2017 at 16:24 Board Certified Radiologist. This report was verified electronically.
[2017-01-18] MEDS ORDERED: SODIUM CHLORIDE 0.65% NASAL SPRAY 45 ML BTL EACH NARE PRN (17:15)
[2017-01-18] MEDS: BECLOMETHASONE DIPROPIONATE 80 MCG/ACT 8.7 GM INHALER INH SCH (21:50)
[2017-01-18] MEDS: FAMOTIDINE 20 MG TAB PO SCH (21:50)
[2017-01-18] MEDS: ZOLPIDEM TARTRATE 5 MG TAB PO PRN (21:51)
[2017-01-19] VITALS: BP 148/72; PULSE 72; RESP 17; TEMP 97.9; O2SAT 95
[2017-01-19] MEDS: SODIUM CHLOR 0.9% 1000 ML INJ 1,000 ML IV SCH ×2 (05:25→18:08)
[2017-01-19 06:22] LABS: AUTOMATED NEUTROPHIL # 5.4 TH/MM3 (1.8-7.7); BASOPHIL % 0.1 % (0.0-2.0); EOSINOPHIL # 0.7 TH/MM3 (0-0.4); EOSINOPHIL % 9.3 % (0.0-4.0); HEMATOCRIT 41.3 % (39.0-51.0); HEMO FLAGS DIFF FINAL; LYMPH % 14.7 % (9.0-44.0); LYMPHOCYTE # 1.2 TH/MM3 (1.0-4.8); MEAN CELL VOLUME 92.5 FL (80.0-100.0); MEAN CORPUSCULAR HEMOGLOBIN 31.1 PG (27.0-34.0); MEAN CORPUSCULAR HGB CONC 33.7 % (32.0-36.0); NEUT % 68.9 % (16.0-70.0); PLATELET COUNT 157 TH/MM3 (150-450); RED BLOOD COUNT 4.47 MIL/MM3 (4.50-5.90); RED CELL DISTRIBUTION WIDTH 12.4 % (11.6-17.2); WHITE BLOOD COUNT 7.9 TH/MM3 (4.0-11.0)
[2017-01-19 06:28] LABS: POTASSIUM 4.5 MEQ/L (3.5-5.1)
[2017-01-19 06:34] LABS: BICARBONATE 29.1 MEQ/L (21.0-32.0)
[2017-01-19] MEDS: ISOSORBIDE MONONITRATE 60 MG TAB PO SCH (08:37)
[2017-01-19 09:00] VITALS: BP 122/66; PULSE 73; RESP 14; TEMP 97.7; O2SAT 97
[2017-01-19] MEDS: DOCUSATE SODIUM 50 MG/SENNA 8.6 MG TAB PO SCH ×2 (09:00→21:07)
[2017-01-19] MEDS: BECLOMETHASONE DIPROPIONATE 80 MCG/ACT 8.7 GM INHALER INH SCH ×2 (09:00→21:00)
[2017-01-19] MEDS ORDERED: ASPIRIN 81 MG CHEW TAB CHEW SCH (09:00)
[2017-01-19] MEDS ORDERED: ATENOLOL 50 MG TAB PO SCH (09:00)
[2017-01-19] MEDS ORDERED: ENALAPRIL MALEATE 10 MG TAB PO SCH (09:00)
--- NOTE | 2017-01-19 09:32 | PD.CONS ---
cc: Abel Grace MD [facility] Service CONSULTATION NOTE FOR SURGICAL ATTENDING, DR. ABEL GRACE General Surgery Consult Requested By Ameean CARMEN Reason for Consult Gallstone pancreatitis Primary Care Physician Edison Martinez MD History of Present Illness This is a 76-year-old male with a past medical history of coronary artery disease, asthma, hypertension, hypercholesterolemia, myocardial infarction, CABG , insomnia and glaucoma. The patient awoke suddenly yesterday morning around 4 AM with severe epigastric pain. The patient states the pain radiated to his right side. The patient denies any nausea or vomiting. The patient does comment on subjective chills. A CT abdomen and pelvis was obtained which shows a mildly distended gallbladder without calcified stones. An ultrasound of the gallbladder was obtained which shows a distended gallbladder with gallbladder wall thickening and a small amount of pericholecystic fluid. There is no definite gallstones or sludge and there was a concern for acute acalculous cholecystitis. On admission the patient's lipase was [phone]. The patient has normal liver enzymes. A General Surgery consultation has been requested for evaluation of laparoscopic cholecystectomy. Review of Systems Constitutional: COMPLAINS OF: Chills, DENIES: Fatigue, Change in appetite Endocrine: DENIES: Polydipsia, Polyuria, Polyphagia Eyes: DENIES: Diplopia Respiratory: DENIES: Cough Cardiovascular: DENIES: Chest pain Gastrointestinal: COMPLAINS OF: Abdominal pain, DENIES: Nausea, Vomiting Genitourinary: DENIES: Urinary frequency Musculoskeletal: DENIES: Joint pain Integumentary: DENIES: Abnormal pigmentation Hematologic/lymphatic: DENIES: Bruising Immunologic/allergic: DENIES: Eczema Neurologic: DENIES: Headache, Localized weakness Psychiatric: DENIES: Mood changes, Depression, Hallucinations Past Family Social History Past Medical History Coronary artery disease Asthma Hypertension Hypercholesterolemia Myocardial infarction Insomnia Glaucoma Past Surgical History CABG 4 in 2003 Right carotid endarterectomy Right arm surgery Right knee replacement Reported Medications Zetia Atorvastatin Fish oil Isosorbide Atenolol Enalapril Aspirin Calcium carbonate Beclomethasone Inhaler Pepcid Vitamin D Coenzyme Q10 Allergies: Coded Allergies: meperidine (Unverified Allergy, Severe, NAUSEA/VOMITING, 09/19/16) STATES HE GOES CRAZY Uncoded Allergies: vee (Allergy, Unknown, upset stomach, 09/30/15) Active Ordered Medications Current Medications Medications (Trade) Dose Ordered Sig/Drake Route Start Time Stop Time Status Last Admin Sodium Chloride 1,000 ml @ 100 mls/hr Q10H IV 01/18/17 05:45 01/19/17 05:25 (NS Flush) 2 ml UNSCH PRN IV FLUSH 01/18/17 07:00 (NS Flush) 2 ml BID IV FLUSH 01/18/17 09:00 01/18/17 09:34 (Tylenol) 650 mg Q4H PRN PO 01/18/17 07:00 01/19/17 08:51 (Zofran Inj) 4 mg Q6H PRN IVP 01/18/17 07:00 (Narcan Inj) 0.4 mg UNSCH PRN IV PUSH 01/18/17 07:00 (Elisa-Colace) 1 tab BID PO 01/18/17 09:00 01/18/17 21:50 (Milk Of Magnesia Liq) 30 ml Q12H PRN PO 01/18/17 07:00 (Senokot) 17.2 mg Q12H PRN PO 01/18/17 07:00 (Dulcolax Supp) 10 mg DAILY PRN RECTAL 01/18/17 07:00 (Lactulose Liq) 30 ml DAILY PRN PO 01/18/17 07:00 (Heparin Inj) 5,000 units Q12HR SQ 01/18/17 09:00 Future Hold (Aspirin Chew) 162 mg DAILY CHEW 01/19/17 09:00 (Tenormin) 100 mg DAILY PO 01/19/17 09:00 (Qvar 80 Mcg Inh) 1 puff BID INH 01/18/17 21:00 01/18/17 21:50 (Vasotec) 10 mg DAILY PO 01/19/17 09:00 (Imdur) 120 mg DAILY@0700 PO 01/19/17 07:00 01/19/17 08:37 (Pepcid) 40 mg HS PO 01/18/17 21:00 01/18/17 21:50 ([place]) 2 spray Q4H PRN EACH NARE 01/18/17 17:15 (Ambien) 5 mg HS PRN PO 01/18/17 21:00 01/18/17 21:51 Family History Noncontributory Social History Denies tobacco use Denies EtOH use Denies illicit drug use Lives at home with his . Physical Exam Vital Signs Vital Signs Date Time Temp Pulse Resp B/P (MAP) Pulse Ox O2 Delivery O2 Flow Rate FiO2 01/19/17 00:00 97.9 72 17 148/72 (97) 95 01/18/17 20:00 96.0 79 18 169/80 (109) 96 01/18/17 18:12 96.4 74 16 168/77 (107) 96 01/18/17 13:00 98.6 86 18 136/78 (97) 98 Physical Exam GENERAL: Pleasant 76 year old male resting in bed in no acute distress. SKIN: Warm and dry. HEAD: Atraumatic. Normocephalic. EYES: Pupils equal and round. No scleral icterus. No injection or drainage. ENT: No nasal bleeding or discharge. Mucous membranes pink and moist. NECK: Trachea midline. CARDIOVASCULAR: Regular rate and rhythm. Large well healed sternal incision from CABG. RESPIRATORY: No accessory muscle use. Clear to auscultation. Breath sounds equal bilaterally. GASTROINTESTINAL: Abdomen soft, nondistended. Minimal RUQ pain with palpation. No visible scars or hernias on the abdomen. MUSCULOSKELETAL: Extremities without clubbing, cyanosis, or edema. No obvious deformities. NEUROLOGICAL: Awake and alert. No obvious cranial nerve deficits. Motor grossly within normal limits. Five out of 5 muscle strength in the arms and legs. Normal speech. PSYCHIATRIC: Appropriate mood and affect; insight and judgment normal. Laboratory Laboratory Tests Test 01/18/17 10:10 01/18/17 18:00 01/19/17 05:36 Urine Collection Type CLEAN CATCH Urine Color YELLOW Urine Turbidity CLEAR Urine pH 5.0 Urine Specific [place] 1.005 Urine Protein NEG Urine Glucose (UA) NEG Urine Ketones NEG Urine Occult Blood TRACE Urine Nitrite NEG Urine Bilirubin NEG Urine Leukocyte Esterase NEG Urine RBC 0-3 Urine WBC 0-2 Urine Squamous Epithelial Cells 0-5 Microscopic Urinalysis Comment CULT NOT INDICATED Urine Collection Time 10:10 White Blood Count 7.9 Red Blood Count 4.47 Hemoglobin 13.9 Hematocrit 41.3 Mean Corpuscular Volume 92.5 Mean Corpuscular Hemoglobin 31.1 Mean Corpuscular Hemoglobin Concent 33.7 Red Cell Distribution Width 12.4 Platelet Count 157 Mean Platelet Volume 9.4 Neutrophils (%) (Auto) 68.9 Lymphocytes (%) (Auto) 14.7 Monocytes (%) (Auto) 7.0 Eosinophils (%) (Auto) 9.3 Basophils (%) (Auto) 0.1 Neutrophils # (Auto) 5.4 Lymphocytes # (Auto) 1.2 Monocytes # (Auto) 0.6 Eosinophils # (Auto) 0.7 Basophils # (Auto) 0.0 CBC Comment DIFF FINAL Differential Comment Blood Urea Nitrogen 14 Creatinine 0.66 Random Glucose 83 Calcium Level 8.6 Sodium Level 143 Potassium Level 4.5 Chloride Level 109 Carbon Dioxide Level 29.1 Anion Gap 5 Estimat Glomerular Filtration Rate 117 Lipase 1855 Date/Time Source Procedure Growth Status 01/18/17 06:00 Blood Peripheral Aerobic Blood Culture Pending Received 01/18/17 06:00 Blood Peripheral Anaerobic Blood Culture Pending Received Result Diagram: 01/19/17 0536 01/19/17 0536 Imaging Last 48 hours Impressions Chest X-Ray 01/18/17 0539 Signed Impressions: Service Date/Time: January 06:02 - CONCLUSION: The lungs are clear. Alvin Waggoner MD Abdomen/Pelvis CT 01/18/17 0539 Signed Impressions: Service Date/Time: January 06:28 - CONCLUSION: 1. Mild constipation without dilated small bowel loops. 2. Mildly distended gallbladder without calcified stones. Alvin Waggoner MD Gall Bladder Ultrasound 01/18/17 0000 Signed Impressions: Service Date/Time: January 20:15 - CONCLUSION: 1. Distended gallbladder with gallbladder wall thickening and trace pericholecystic fluid. No definite gallstone or significant sludge. No significant biliary ductal dilatation. The findings are somewhat nonspecific but can not exclude acute acalculous cholecystitis. Consider HIDA scan if there is continued clinical concern to evaluate for cystic duct patency. 2. Small nearly cirrhotic appearing liver. Gopi Marroquin MD Assessment and Plan Problem List: (1) Acute gallstone pancreatitis ICD Codes: K85.10 - Biliary acute pancreatitis without necrosis or infection Status: Acute (2) Abnormal findings on diagnostic imaging of liver and biliary tract ICD Codes: R93.2 - Abnormal findings on diagnostic imaging of liver and biliary tract Status: Acute (3) Pancreatitis, acute ICD Codes: K85.90 - Acute pancreatitis without necrosis or infection, unspecified Status: Acute (4) Coronary artery disease ICD Codes: I25.10 - Atherosclerotic heart disease of [place] coronary artery without angina pectoris Status: Chronic (5) Hyperlipidemia ICD Codes: E78.5 - Hyperlipidemia, unspecified Status: Chronic (6) Gallstone ICD Codes: K80.20 - Calculus of gallbladder without cholecystitis without obstruction (7) Hypertension ICD Codes: I10 - Essential (primary) hypertension Status: Chronic (8) COPD (chronic obstructive pulmonary disease) ICD Codes: J44.9 - Chronic obstructive pulmonary disease, unspecified Status: Acute (9) Elevated lipase ICD Codes: R74.8 - Abnormal levels of other serum enzymes Status: Acute Assessment and Plan 76 year old male with abdominal pain; acalculous cholecystitis; elevated lipase -Will wait for lipase level to decrease -Clear liquids -Tentatively plan for laparoscopic cholecystectomy on Sunday pending laboratory work -NPO after MN on Sunday -All questions answered and patient and understand plan of care -Thank you for this consult Discussed Condition With Dr. Lesly Joseph and Mrs. Giovany Cochran Attending Statement NOTE FOR SURGICAL ATTENDING, DR. ABEL RGACE I agree with above assessment and plan. The exam, history, and the medical decision-making described in the above note were completed with the assistance of the mid-level provider. I reviewed and agree with the findings presented. I attest that I had a [id number] encounter with the patient on the same day, and personally performed and documented my assessment and findings in the medical record. The following services were provided during this hospital visit: Chart data review, vital sign assessments/reviewing monitor data Review of consultations notes if present. Medication orders/review and/or management Ordering and/or reviewing lab tests Ordering and/or interpreting/reviewing x-rays and/or diagnostic studies Care of the patient and discussion of the patient with the care team Documentation time To help prompt me to consider important information that might be impacting today's encounter and assessment, information from prior notes written by myself or my colleagues may have been "brought forward/copy and pasted" into today's note. Problem Qualifiers (1) Pancreatitis, acute: (2) Gallstone: Juliane Silveira Jan 19, 2017 09:32 Abel Grace MD Jan 22, 2017 12:36
--- NOTE | 2017-01-19 09:35 | HHI.PR ---
Subjective Remarks Follow up pancreatitis. Patient seen and examined, at bedside. Patient states that pain has improved. Slept well. Denies any nausea, vomiting, diarrhea. Has been tolerating clear liquid diet. Positive formed BM overnight. Afebrile. Objective Vitals Vital Signs Date Time Temp Pulse Resp B/P (MAP) Pulse Ox O2 Delivery O2 Flow Rate FiO2 01/19/17 00:00 97.9 72 17 148/72 (97) 95 01/18/17 20:00 96.0 79 18 169/80 (109) 96 01/18/17 18:12 96.4 74 16 168/77 (107) 96 01/18/17 13:00 98.6 86 18 136/78 (97) 98 I/O 01/18/17 01/18/17 01/18/17 01/19/17 01/19/17 01/19/17 07:00 15:00 23:00 07:00 15:00 23:00 Intake Total 1958 ml 1000 ml Balance 1958 ml 1000 ml Intake IV Total 1958 ml 1000 ml # Voids 4 3 # Bowel Movements 0 0 Result Diagram: 01/19/17 0536 01/19/17 0536 Imaging Last Impressions Chest X-Ray 01/18/17 0539 Signed Impressions: Service Date/Time: January 06:02 - CONCLUSION: The lungs are clear. Alvin Waggoner MD Abdomen/Pelvis CT 01/18/17 0539 Signed Impressions: Service Date/Time: January 06:28 - CONCLUSION: 1. Mild constipation without dilated small bowel loops. 2. Mildly distended gallbladder without calcified stones. Alvin Waggoner MD Gall Bladder Ultrasound 01/18/17 0000 Signed Impressions: Service Date/Time: January 20:15 - CONCLUSION: 1. Distended gallbladder with gallbladder wall thickening and trace pericholecystic fluid. No definite gallstone or significant sludge. No significant biliary ductal dilatation. The findings are somewhat nonspecific but can not exclude acute acalculous cholecystitis. Consider HIDA scan if there is continued clinical concern to evaluate for cystic duct patency. 2. Small nearly cirrhotic appearing liver. Gopi Marroquin MD Objective Remarks GENERAL: This is a well-nourished, well-developed elderly male patient, lying in bed in no apparent distress. SKIN: No rashes, ecchymoses or lesions. Warm and dry. HEAD: Atraumatic. Normocephalic. Pupils equal round and reactive. Extraocular motions intact. No scleral icterus. No injection or drainage. Nose without bleeding. Airway patent. NECK: Trachea midline. No JVD. Supple. CARDIOVASCULAR: Regular rate and rhythm without murmurs, gallops, or rubs. RESPIRATORY: Clear to auscultation. Breath sounds equal bilaterally. No wheezes , rales, or rhonchi. GASTROINTESTINAL: Abdomen soft, nondistended. Positive Ross's sign. No guarding. Active bowel sounds x 4 quadrants. Pain to palpation in mid- epigastric area. MUSCULOSKELETAL: Extremities without clubbing, cyanosis, or edema. No joint tenderness, effusion, or edema noted. NEUROLOGICAL: Awake and alert. Cranial nerves II through XII intact. Motor and sensory grossly within normal limits. Five out of 5 muscle strength in all muscle groups. Normal speech. A/P Problem List: (1) Pancreatitis, acute ICD Code: K85.90 - Acute pancreatitis without necrosis or infection, unspecified Status: Acute Plan: Nonalcoholic related, suspect secondary to gallbladder Lipase level 37865-->1855. Trend. CT reviewed showing mild constipation without dilated small bowel loops. Mildly distended gallbladder without calcified stones. CXR reviewed showing clear lungs. Status post 2.5 L NS bolus in ED. Protonix 40 IV x 1 given in ED. Ensure hydration, continue IVF. Control pain, Morphine IV available PRN if needed. Blood cultures pending, follow. Afebrile. Gallbladder ultrasound showing distended gallbladder with wall thickening and trace pericholecystic fluid. No definite gallstone or sludge. No biliary ductal dilatation. General surgery consulted. Recommendations to continue clear liquid diet as tolerated. Recheck lipase level in am. If trending down will plan for Laparoscopic cholecystectomy possibly on Sunday. Hepatitis panel ordered and pending. Follow. (2) Hypertension ICD Code: I10 - Essential (primary) hypertension Status: Chronic Plan: Continue home medications. Monitor BP trends. (3) Hyperlipidemia ICD Code: E78.5 - Hyperlipidemia, unspecified Status: Chronic Plan: Will hold cholesterol home medications for now. (4) Coronary artery disease ICD Code: I25.10 - Atherosclerotic heart disease of [place] coronary artery without angina pectoris Status: Chronic Plan: Continue home Aspirin. DVT Prophylaxis: SCDs. Heparin. Ameena Shore Jan 19, 2017 09:35
[2017-01-19 12:00] VITALS: BP 127/62; PULSE 62; RESP 14; TEMP 96; O2SAT 98
[2017-01-19 16:00] VITALS: BP 126/63; PULSE 72; RESP 16; TEMP 96.1; O2SAT 96
[2017-01-19] MEDS: SODIUM CHLORIDE 0.9% FLUSH 10 ML FLUSH IV FLUSH SCH ×2 (18:09→21:00)
[2017-01-19 20:00] VITALS: BP 133/63; PULSE 73; RESP 20; TEMP 97.2; O2SAT 97
[2017-01-19] MEDS: ATENOLOL 50 MG TAB PO SCH (21:05)
[2017-01-19] MEDS: ZOLPIDEM TARTRATE 5 MG TAB PO PRN (21:05)
[2017-01-19] MEDS: FAMOTIDINE 20 MG TAB PO SCH (21:05)
[2017-01-19] MEDS: ENALAPRIL MALEATE 10 MG TAB PO SCH (21:07)
[2017-01-20] VITALS: BP 102/51; PULSE 66; RESP 20; TEMP 96.5; O2SAT 100
[2017-01-20] MEDS: SODIUM CHLOR 0.9% 1000 ML INJ 1,000 ML IV SCH ×2 (01:00→09:18)
[2017-01-20 08:00] VITALS: BP 162/75; PULSE 79; RESP 19; TEMP 98.2; O2SAT 97
[2017-01-20] MEDS: SODIUM CHLORIDE 0.9% FLUSH 10 ML FLUSH IV FLUSH SCH ×2 (09:00→23:17)
--- NOTE | 2017-01-20 09:16 | HHI.PR ---
Subjective Remarks Follow up pancreatitis. Patient seen and examined, lying in bed comfortably. Slept well. Pain has completely resolved. Tolerating PO intake, denies any nausea or vomiting. Ambulating well. Afebrile. VSS. Objective Vitals Vital Signs Date Time Temp Pulse Resp B/P (MAP) Pulse Ox O2 Delivery O2 Flow Rate FiO2 01/20/17 08:00 98.2 79 19 162/75 (104) 97 01/20/17 00:00 96.5 66 20 102/51 (68) 100 01/19/17 20:00 97.2 73 20 133/63 (86) 97 01/19/17 16:00 96.1 72 16 126/63 (84) 96 01/19/17 12:00 96.0 62 14 127/62 (83) 98 01/19/17 09:51 18 I/O 01/19/17 01/19/17 01/19/17 01/20/17 01/20/17 01/20/17 07:00 15:00 23:00 07:00 15:00 23:00 Intake Total 1000 ml 240 ml 1240 ml Balance 1000 ml 240 ml 1240 ml Intake Oral 240 ml 240 ml IV Total 1000 ml 1000 ml # Voids 3 1 3 5 # Bowel Movements 0 1 0 Result Diagram: 01/19/17 0536 01/19/17 0536 Imaging Last Impressions Chest X-Ray 01/18/17 0539 Signed Impressions: Service Date/Time: January 06:02 - CONCLUSION: The lungs are clear. Alvin Waggoner MD Abdomen/Pelvis CT 01/18/17 0539 Signed Impressions: Service Date/Time: January 06:28 - CONCLUSION: 1. Mild constipation without dilated small bowel loops. 2. Mildly distended gallbladder without calcified stones. Alvin Waggoner MD Gall Bladder Ultrasound 01/18/17 0000 Signed Impressions: Service Date/Time: January 20:15 - CONCLUSION: 1. Distended gallbladder with gallbladder wall thickening and trace pericholecystic fluid. No definite gallstone or significant sludge. No significant biliary ductal dilatation. The findings are somewhat nonspecific but can not exclude acute acalculous cholecystitis. Consider HIDA scan if there is continued clinical concern to evaluate for cystic duct patency. 2. Small nearly cirrhotic appearing liver. Gopi Marroquin MD Objective Remarks GENERAL: This is a well-nourished, well-developed elderly male patient, lying in bed in no apparent distress. SKIN: No rashes, ecchymoses or lesions. Warm and dry. HEAD: Atraumatic. Normocephalic. Pupils equal round and reactive. Extraocular motions intact. No scleral icterus. No injection or drainage. Nose without bleeding. Airway patent. NECK: Trachea midline. No JVD. Supple. CARDIOVASCULAR: Regular rate and rhythm without murmurs, gallops, or rubs. RESPIRATORY: Clear to auscultation. Breath sounds equal bilaterally. No wheezes , rales, or rhonchi. GASTROINTESTINAL: Abdomen soft, nondistended. Positive Ross's sign. No guarding. Active bowel sounds x 4 quadrants. Pain to palpation in mid- epigastric area. MUSCULOSKELETAL: Extremities without clubbing, cyanosis, or edema. No joint tenderness, effusion, or edema noted. NEUROLOGICAL: Awake and alert. Cranial nerves II through XII intact. Motor and sensory grossly within normal limits. Five out of 5 muscle strength in all muscle groups. Normal speech. A/P Problem List: (1) Pancreatitis, acute ICD Code: K85.90 - Acute pancreatitis without necrosis or infection, unspecified Status: Acute Plan: Nonalcoholic related, suspect secondary to gallbladder Lipase level 26245-->1855-->awaiting lab today. Trend. CT reviewed showing mild constipation without dilated small bowel loops. Mildly distended gallbladder without calcified stones. CXR reviewed showing clear lungs. Status post 2.5 L NS bolus in ED. Ensure hydration, continue IVF. Control pain, Morphine IV available PRN if needed. Blood cultures NGTD. Follow. Afebrile. Gallbladder ultrasound showing distended gallbladder with wall thickening and trace pericholecystic fluid. No definite gallstone or sludge. No biliary ductal dilatation. General surgery consulted. Recommendations to continue clear liquid diet as tolerated. If lipase trending down will plan for Laparoscopic cholecystectomy possibly on Sunday. Hepatitis panel negative. (2) Hypertension ICD Code: I10 - Essential (primary) hypertension Status: Chronic Plan: Continue home medications. Monitor BP trends. (3) Hyperlipidemia ICD Code: E78.5 - Hyperlipidemia, unspecified Status: Chronic Plan: Will hold cholesterol home medications for now. (4) Coronary artery disease ICD Code: I25.10 - Atherosclerotic heart disease of [place] coronary artery without angina pectoris Status: Chronic Plan: Continue home Aspirin. DVT Prophylaxis: SCDs. Ameena Shore Jan 20, 2017 09:16
[2017-01-20] MEDS: ISOSORBIDE MONONITRATE 60 MG TAB PO SCH (09:17)
[2017-01-20] MEDS: BECLOMETHASONE DIPROPIONATE 80 MCG/ACT 8.7 GM INHALER INH SCH ×2 (09:17→23:18)
[2017-01-20] MEDS: DOCUSATE SODIUM 50 MG/SENNA 8.6 MG TAB PO SCH ×2 (09:17→23:15)
[2017-01-20 12:00] VITALS: BP 118/55; PULSE 63; RESP 20; TEMP 97.5; O2SAT 97
[2017-01-20 16:00] VITALS: BP 102/64; PULSE 64; RESP 18; TEMP 97.8; O2SAT 97
--- NOTE | 2017-01-20 16:51 | HHI.PR ---
Subjective Subjective Notes feels better, less pain Objective Vitals/I&O Vital Signs Date Time Temp Pulse Resp B/P (MAP) Pulse Ox O2 Delivery O2 Flow Rate FiO2 01/20/17 12:00 97.5 63 20 118/55 (76) 97 01/18/17 08:10 Room Air 01/18/17 05:59 2.00 Labs Laboratory Tests Test 01/20/17 08:47 Lipase 301 Date/Time Source Procedure Growth Status 01/18/17 06:00 Blood Peripheral Aerobic Blood Culture - Preliminary NO GROWTH IN 2 DAYS Resulted 01/18/17 06:00 Blood Peripheral Anaerobic Blood Culture - Preliminary NO GROWTH IN 2 DAYS Resulted Radiology Last 48 hours Impressions Chest X-Ray 01/18/17 0539 Signed Impressions: Service Date/Time: January 06:02 - CONCLUSION: The lungs are clear. Alvin Waggoner MD Abdomen/Pelvis CT 01/18/17 0539 Signed Impressions: Service Date/Time: January 06:28 - CONCLUSION: 1. Mild constipation without dilated small bowel loops. 2. Mildly distended gallbladder without calcified stones. Alvin Waggoner MD Gall Bladder Ultrasound 01/18/17 0000 Signed Impressions: Service Date/Time: January 20:15 - CONCLUSION: 1. Distended gallbladder with gallbladder wall thickening and trace pericholecystic fluid. No definite gallstone or significant sludge. No significant biliary ductal dilatation. The findings are somewhat nonspecific but can not exclude acute acalculous cholecystitis. Consider HIDA scan if there is continued clinical concern to evaluate for cystic duct patency. 2. Small nearly cirrhotic appearing liver. Gopi Marroquin MD Cardiovascular: Regular Lungs: Clear Abdomen: Non-distended, Non-tender A/P Assessment and Plan 76yo with GS pancreatitis, stable. pain better lipase down will likely be cooled off for surgery Sunday npo Sunday night for surgery Sunday with Artemio Barros MD Jan 20, 2017 16:51
[2017-01-20] MEDS: ACETAMINOPHEN/HYDROcodone 325 MG/7.5 MG TAB PO PRN (18:34)
[2017-01-20 20:00] VITALS: BP 134/61; PULSE 72; RESP 18; TEMP 97.8; O2SAT 96
[2017-01-20] MEDS: ATENOLOL 50 MG TAB PO SCH (23:15)
[2017-01-20] MEDS: FAMOTIDINE 20 MG TAB PO SCH (23:15)
[2017-01-20] MEDS: ENALAPRIL MALEATE 10 MG TAB PO SCH (23:15)
[2017-01-21] VITALS: BP 152/67; PULSE 76; RESP 18; TEMP 97; O2SAT 96
[2017-01-21] MEDS: ACETAMINOPHEN/HYDROcodone 325 MG/7.5 MG TAB PO PRN ×4 (00:57→23:12)
[2017-01-21] MEDS: SODIUM CHLOR 0.9% 1000 ML INJ 1,000 ML IV SCH ×4 (00:59→18:16)
[2017-01-21] MEDS: ISOSORBIDE MONONITRATE 60 MG TAB PO SCH (06:04)
[2017-01-21 08:00] VITALS: BP 154/67; PULSE 70; RESP 16; TEMP 97.8; O2SAT 97
[2017-01-21] MEDS: DOCUSATE SODIUM 50 MG/SENNA 8.6 MG TAB PO SCH ×2 (08:23→20:45)
[2017-01-21] MEDS: SODIUM CHLORIDE 0.9% FLUSH 10 ML FLUSH IV FLUSH SCH ×2 (08:23→20:44)
[2017-01-21] MEDS: BECLOMETHASONE DIPROPIONATE 80 MCG/ACT 8.7 GM INHALER INH SCH ×2 (08:23→20:51)
--- NOTE | 2017-01-21 09:17 | HHI.PR ---
Subjective Remarks Patient seen and evaluated today in follow-up for gallstone pancreatitis. No new complaints. Will be nothing by mouth at midnight for or in a.m. Back pain improved with hydrocodone Objective Vitals Vital Signs Date Time Temp Pulse Resp B/P (MAP) Pulse Ox O2 Delivery O2 Flow Rate FiO2 01/21/17 08:00 97.8 70 16 154/67 (96) 97 01/21/17 00:00 97.0 76 18 152/67 (95) 96 01/20/17 20:34 18 01/20/17 20:00 97.8 72 18 134/61 (85) 96 01/20/17 16:00 97.8 64 18 102/64 (77) 97 01/20/17 12:00 97.5 63 20 118/55 (76) 97 I/O 01/20/17 01/20/17 01/20/17 01/21/17 01/21/17 01/21/17 07:00 15:00 23:00 07:00 15:00 23:00 Intake Total 1240 ml 720 ml 1940 ml Output Total 750 ml Balance 1240 ml 720 ml 1190 ml Intake Oral 240 ml 720 ml 240 ml IV Total 1000 ml 1700 ml Output Urine Total 750 ml # Voids 5 5 # Bowel Movements 0 Result Diagram: 01/19/1736 01/19/17535 Imaging GENERAL: This is a well-nourished, well-developed patient, in no apparent distress. CARDIOVASCULAR: Regular rate and rhythm without murmurs, gallops, or rubs. RESPIRATORY: Clear to auscultation. Breath sounds equal bilaterally. No wheezes , rales, or rhonchi. GASTROINTESTINAL: Abdomen soft, non-tender, nondistended. Normal active bowel sounds MUSCULOSKELETAL: Extremities without clubbing, cyanosis, or edema. NEURO: Alert & Oriented x4 to person, place, time, situation. Moves all ext x4 Objective Remarks Last Impressions Chest X-Ray 01/18/17538 Signed Impressions: Service Date/Time: January 06:02 - CONCLUSION: The lungs are clear. Alvin Waggoner MD Abdomen/Pelvis CT 01/18/17538 Signed Impressions: Service Date/Time: January 06:28 - CONCLUSION: 1. Mild constipation without dilated small bowel loops. 2. Mildly distended gallbladder without calcified stones. Alvin Waggoner MD Gall Bladder Ultrasound 01/18/17 0000 Signed Impressions: Service Date/Time: January 20:15 - CONCLUSION: 1. Distended gallbladder with gallbladder wall thickening and trace pericholecystic fluid. No definite gallstone or significant sludge. No significant biliary ductal dilatation. The findings are somewhat nonspecific but can not exclude acute acalculous cholecystitis. Consider HIDA scan if there is continued clinical concern to evaluate for cystic duct patency. 2. Small nearly cirrhotic appearing liver. Gopi Marroquin MD A/P Problem List: (1) Pancreatitis, acute ICD Code: K85.90 - Acute pancreatitis without necrosis or infection, unspecified Status: Acute Plan: Secondary to gallstone pancreatitis, LFTs and lipase improved To OR in a.m. (2) Hypertension ICD Code: I10 - Essential (primary) hypertension Status: Chronic Plan: Controlled on home meds (3) Hyperlipidemia ICD Code: E78.5 - Hyperlipidemia, unspecified Status: Chronic Plan: Will hold cholesterol home medications for now secondary to elevated LFTs (4) Coronary artery disease ICD Code: I25.10 - Atherosclerotic heart disease of [place] coronary artery without angina pectoris Status: Chronic Plan: Continue aspirin Discharge Planning Pending cholecystectomy in a.m., will address discharge needs after surgery Eleanor Leigh MD Jan 21, 2017 09:17
[2017-01-21 12:00] VITALS: BP 134/74; PULSE 70; RESP 16; TEMP 98; O2SAT 95
[2017-01-21 16:00] VITALS: BP 136/63; PULSE 77; RESP 18; TEMP 97.4; O2SAT 93
[2017-01-21 20:00] VITALS: BP 137/60; PULSE 73; RESP 20; TEMP 98.6; O2SAT 95
[2017-01-21] MEDS: FAMOTIDINE 20 MG TAB PO SCH (20:45)
[2017-01-21] MEDS: ENALAPRIL MALEATE 10 MG TAB PO SCH (20:45)
[2017-01-21] MEDS: ATENOLOL 50 MG TAB PO SCH (20:46)
[2017-01-21 20:49] VITALS: BP 137/60; PULSE 73
[2017-01-22] VITALS: BP 109/60; PULSE 65; RESP 18; TEMP 96.3; O2SAT 95
[2017-01-22] MEDS: SODIUM CHLOR 0.9% 1000 ML INJ 1,000 ML IV SCH (04:23)
[2017-01-22] MEDS: ISOSORBIDE MONONITRATE 60 MG TAB PO SCH (06:28)
[2017-01-22] MEDS: ACETAMINOPHEN/HYDROcodone 325 MG/7.5 MG TAB PO PRN (06:32)
[2017-01-22] MEDS: DOCUSATE SODIUM 50 MG/SENNA 8.6 MG TAB PO SCH (09:43)
[2017-01-22] MEDS: SODIUM CHLORIDE 0.9% FLUSH 10 ML FLUSH IV FLUSH SCH (09:43)
[2017-01-22] MEDS: BECLOMETHASONE DIPROPIONATE 80 MCG/ACT 8.7 GM INHALER INH SCH (09:43)
--- NOTE | 2017-01-22 09:48 | HHI.PR ---
Subjective Remarks Follow up pancreatitis. Patient seen and examined, lying in bed comfortably. Denies any new acute complaints. Pain has completely resolved. Plan is to undergo a cholecystectomy today at 1030. VSS. Afebrile. All questions answered. Objective Vitals Vital Signs Date Time Temp Pulse Resp B/P (MAP) Pulse Ox O2 Delivery O2 Flow Rate FiO2 01/22/17 08:16 18 01/22/17 00:00 96.3 65 18 109/60 (76) 95 01/21/17 20:49 73 137/60 (85) 01/21/17 20:00 98.6 73 20 137/60 (85) 95 01/21/17 16:00 97.4 77 18 136/63 (87) 93 01/21/17 12:00 98.0 70 16 134/74 (94) 95 I/O 01/21/17 01/21/17 01/21/17 01/22/17 01/22/17 01/22/17 07:00 15:00 23:00 07:00 15:00 23:00 Intake Total 1940 ml 300 ml 2035.6 ml 1686 ml Output Total 750 ml Balance 1190 ml 300 ml 2035.6 ml 1686 ml Intake Oral 240 ml 1080 ml 480 ml IV Total 1700 ml 300 ml 955.6 ml 1206 ml Output Urine Total 750 ml # Voids 6 4 # Bowel Movements 0 0 Result Diagram: 01/19/17 0536 01/19/17 0536 Imaging Last Impressions Chest X-Ray 01/18/17 0539 Signed Impressions: Service Date/Time: January 06:02 - CONCLUSION: The lungs are clear. Alvin Waggoner MD Abdomen/Pelvis CT 01/18/17 0539 Signed Impressions: Service Date/Time: January 06:28 - CONCLUSION: 1. Mild constipation without dilated small bowel loops. 2. Mildly distended gallbladder without calcified stones. Alvin Waggoner MD Gall Bladder Ultrasound 01/18/17 0000 Signed Impressions: Service Date/Time: January 20:15 - CONCLUSION: 1. Distended gallbladder with gallbladder wall thickening and trace pericholecystic fluid. No definite gallstone or significant sludge. No significant biliary ductal dilatation. The findings are somewhat nonspecific but can not exclude acute acalculous cholecystitis. Consider HIDA scan if there is continued clinical concern to evaluate for cystic duct patency. 2. Small nearly cirrhotic appearing liver. Gopi Marroquin MD Objective Remarks GENERAL: This is a well-nourished, well-developed elderly male patient, lying in bed in no apparent distress. SKIN: No rashes, ecchymoses or lesions. Warm and dry. HEAD: Atraumatic. Normocephalic. Pupils equal round and reactive. Extraocular motions intact. No scleral icterus. No injection or drainage. Nose without bleeding. Airway patent. NECK: Trachea midline. No JVD. Supple. CARDIOVASCULAR: Regular rate and rhythm without murmurs, gallops, or rubs. RESPIRATORY: Clear to auscultation. Breath sounds equal bilaterally. No wheezes , rales, or rhonchi. GASTROINTESTINAL: Abdomen soft, nondistended. Positive Ross's sign. No guarding. Active bowel sounds x 4 quadrants. Pain to palpation in mid- epigastric area. MUSCULOSKELETAL: Extremities without clubbing, cyanosis, or edema. No joint tenderness, effusion, or edema noted. NEUROLOGICAL: Awake and alert. Cranial nerves II through XII intact. Motor and sensory grossly within normal limits. Five out of 5 muscle strength in all muscle groups. Normal speech. A/P Problem List: (1) Pancreatitis, acute ICD Code: K85.90 - Acute pancreatitis without necrosis or infection, unspecified Status: Acute Plan: Secondary to gallstone pancreatitis, LFTs and lipase improved To OR today. (2) Hypertension ICD Code: I10 - Essential (primary) hypertension Status: Chronic Plan: Controlled on home meds (3) Hyperlipidemia ICD Code: E78.5 - Hyperlipidemia, unspecified Status: Chronic Plan: Will hold cholesterol home medications for now secondary to elevated LFTs (4) Coronary artery disease ICD Code: I25.10 - Atherosclerotic heart disease of [place] coronary artery without angina pectoris Status: Chronic Plan: Continue aspirin DVT Prophylaxis: SCDs. Ameena Shore Jan 22, 2017 09:48
[2017-01-22 09:56] VITALS: BP 126/55; PULSE 65; RESP 16; TEMP 96.5; O2SAT 98
[2017-01-22] MEDS ORDERED: methylPREDNISolone SOD SUCC 125 MG/2 ML VIAL ONE (10:53)
[2017-01-22] MEDS ORDERED: RESP: ALBUTEROL 2.5 MG/3 ML NEB (SCH) ONE ×2 (10:53)
[2017-01-22] MEDS ORDERED: FAMOTIDINE 20 MG/2 ML VIAL ONE (10:53)
[2017-01-22] MEDS ORDERED: MIDAZOLAM HCL 2 MG/2 ML VIAL ONE (10:53)
[2017-01-22] MEDS ORDERED: BUPIVACAINE/EPINEPHRINE 0.25% PF 30 ML VIAL ONE (10:56)
[2017-01-22] MEDS ORDERED: SODIUM CHLORIDE 0.9% INJ 50 ML ONE (11:07)
[2017-01-22] MEDS ORDERED: ceFAZolin INJ 1,000 MG VIAL ONE (11:07)
[2017-01-22] MEDS ORDERED: ACETAMINOPHEN/HYDROcodone 325 MG/5 MG TAB PO PRN (12:30)
[2017-01-22] MEDS ORDERED: NORC5TAB PO (12:30)
--- NOTE | 2017-01-22 12:35 | HHI.PR ---
cc: Abel Grace MD Immediate Post Op Note Procedure Date: Jan 22, 2017 Pre Op Diagnosis: (1) Gallstone (2) Pancreatitis, acute Post Op Diagnosis: (1) S/P laparoscopic cholecystectomy (2) Pancreatitis, acute (3) COPD (chronic obstructive pulmonary disease) (4) Coronary artery disease (5) Gallstone Surgeon: Abel Grace Chaplain(s): Refer to our record Procedure: Laparoscopic cholecystectomy Findings: Inflamed gallbladder Specimen(s) removed: Gallbladder Estimated blood loss: 50 cc Anesthesia: General Drains: None IVF Patient to: PACU Patient Condition: Good Implant/Devices: SEE IMPLANT LOG (if applicable) Date/Time of Procedure: SEE SURGICAL CARE RECORD Abel Grace MD Jan 22, 2017 12:35
--- NOTE | 2017-01-22 12:57 | MP ---
cc: LARA GRACE M.D. DATE OF SURGERY: 01/22/2017 PREOPERATIVE DIAGNOSIS Cholelithiasis, cholecystitis, bout of gallstone pancreatitis. POSTOPERATIVE DIAGNOSIS Cholelithiasis, cholecystitis, bout of gallstone pancreatitis. PROCEDURE Laparoscopic cholecystectomy. ANESTHESIA General. SURGEON Dr. Grace. INDICATIONS This is a pleasant elderly gentleman 76, who had episode of gallstone pancreatitis. He has severe COPD and coronary artery disease. He was stabilized in the hospital for a few days. His amylase and lipase came down to normal range and he was set for the above-mentioned surgery. PROCEDURE The patient was taken to the operating room and placed in the supine position. After endotracheal anesthesia his abdomen was prepped with Betadine, he was given preoperative antibiotics. We make an incision just below the umbilicus. Veress needle was inserted. The saline load test was performed. The abdomen was insufflated to 50 mmHg. A 10 mm trocar was introduced, two other working 5 mm trocars were introduced. The gallbladder can be seen, it is slightly inflamed, grasped superior and laterally identifying the cystic duct, cystic artery which were doubly ligated and transected. Gallbladder is then teased off the gallbladder bed, placed in EndoCatch and pulled out through the umbilical incision. There is some mild oozing from the liver edge which is stopped with electrocautery device and James. We checked the dissection site. There was excellent hemostasis without biliary leakage. The liver is smooth, peritoneal surfaces are smooth. No other gross abnormalities seen. The trocars were removed. The fascial layer at the umbilicus was closed with 0 Vicryl and the skin is closed with 4-0 Vicryl. Steri-Strips were applied. Sterile bandage was applied. The patient tolerated the procedure well, extubated, and returned to the recovery room. Intraoperative findings were discussed with the family in the waiting room. Lara Grace MD JDB/TLL /12:31 PM /12:40 PM
[2017-01-22 13:15] VITALS: BP 123/55; PULSE 65; RESP 16; TEMP 98; O2SAT 96
[2017-01-22] MEDS ORDERED: ceFAZolin 1,000 MG/NS 100 ML IV ONE ×2 (14:30)
--- NOTE | 2017-01-22 17:23 | HHI.DCPOC ---
Discharge Care Plan Diagnosis: (1) Acute gallstone pancreatitis Goals to Promote Your Health * To prevent worsening of your condition and complications * To maintain your health at the optimal level Directions to Meet Your Goals Take your medications as prescribed Follow your dietary instruction Follow activity as directed Keep your appointments as scheduled Take your immunizations and boosters as scheduled If your symptoms worsen call your PCP, if no PCP go to Urgent Care Center or Emergency Room Smoking is Dangerous to Your Health. Avoid second hand smoke Call the 24-hour hour crisis hotline for domestic abuse at Eleanor Leigh MD Jan 22, 2017 17:23
--- NOTE | 2017-01-22 17:24 | HHI.DS ---
Discharge Summary Admission Date Jan 18, 2017 at 06:53 Discharge Date: Jan 22, 2017 Admitting Diagnosis acute pancreatitis (1) Pancreatitis, acute ICD Code: K85.90 - Acute pancreatitis without necrosis or infection, unspecified Status: Acute (2) Hypertension ICD Code: I10 - Essential (primary) hypertension Status: Chronic (3) Hyperlipidemia ICD Code: E78.5 - Hyperlipidemia, unspecified Status: Chronic (4) Coronary artery disease ICD Code: I25.10 - Atherosclerotic heart disease of [place] coronary artery without angina pectoris Status: Chronic Procedures Laparoscopic cholecystectomy Brief History - From Admission Written by Ameena Shore, acting as scribe for Dr. Leigh on 01/18/17 at 12:28. Mr. Adair is a pleasant 76-year-old male patient with a known medical history of CAD with history of CABG, HTN, dyslipidemia who presented to the ED with complaints of severe abdominal pain. Patient states that around 0400 this morning while he was awoken out of sleep due to a severe mid-epigastric abdominal pain. The pain is located in his mid-epigastric area radiating to the right upper and lower quadrant. Positive Ross's sign present. Denies any associated nausea, vomiting or shortness of breath. Does admit to becoming diaphoretic when the pain began. He states that the pain lasted roughly an hour and a half until he presented to the ED and was given IV Morphine. Patient denies any history of GI complaints of disease. At the time of assessment patient states that the pain has slightly improved with medication and rest. Denies any recent illness including fevers, chills, headache, chest pain, shortness of breath, dysuria. Patient denies any changes in medications. Denies any recent alcohol use, states at most he drinks 2 beers a year. Denies any recent diarrhea or hematochezia. Denies any changes in food intake or appetite. Has been eating and drinking well. Patient does follow with Dr. Mcgill for his preventative screening and is to undergo a colonoscopy scheduled for Sunday next week. CBC/BMP: 01/19/17 0536 01/19/17 0536 Significant Findings Laboratory Tests Test 01/20/17 08:47 Imaging Last Impressions Chest X-Ray 01/18/17 0539 Signed Impressions: Service Date/Time: January 06:02 - CONCLUSION: The lungs are clear. Alvin Waggoner MD Abdomen/Pelvis CT 01/18/17 0539 Signed Impressions: Service Date/Time: January 06:28 - CONCLUSION: 1. Mild constipation without dilated small bowel loops. 2. Mildly distended gallbladder without calcified stones. Alvin Waggoner MD Gall Bladder Ultrasound 01/18/17 0000 Signed Impressions: Service Date/Time: January 20:15 - CONCLUSION: 1. Distended gallbladder with gallbladder wall thickening and trace pericholecystic fluid. No definite gallstone or significant sludge. No significant biliary ductal dilatation. The findings are somewhat nonspecific but can not exclude acute acalculous cholecystitis. Consider HIDA scan if there is continued clinical concern to evaluate for cystic duct patency. 2. Small nearly cirrhotic appearing liver. Gopi Marroquin MD PE at Discharge GENERAL: This is a well-nourished, well-developed patient, in no apparent distress. CARDIOVASCULAR: Regular rate and rhythm without murmurs, gallops, or rubs. RESPIRATORY: Clear to auscultation. Breath sounds equal bilaterally. No wheezes , rales, or rhonchi. GASTROINTESTINAL: Abdomen soft, non-tender, nondistended. Normal active bowel sounds MUSCULOSKELETAL: Extremities without clubbing, cyanosis, or edema. NEURO: Alert & Oriented x4 to person, place, time, situation. Moves all ext x4 Pt update on day of discharge Please see daily progress note Hospital Course Patient very pleasant 76-year-old gentleman with acute abdominal pain found to be due to pancreatitis. Patient has gallstone pancreatitis. This was treated surgically and he had a successful left postop cholecystectomy. Was discharged home Pt Condition on Discharge: Good Discharge Disposition: Discharge Home Discharge Time: <= 30 minutes Discharge Instructions DIET: Follow Instructions for: Heart Healthy Diet Activities you can perform: Regular-No Restrictions Follow up Referrals: Surgical - 1 Week with Abel Grace MD New Medications: Hydrocodone-Acetaminophen ([place]) 5 Mg-325 Mg Tab 1 TAB PO Q4H PRN for PAIN, #20 TAB 0 Refills Continued Medications: Aspirin (Aspirin) 81 Mg Chew 162 MG CHEW DAILY, TAB 0 Refills Atenolol (Atenolol) 100 Mg Tab 100 MG PO DAILY for Blood Pressure Management, #30 TAB 0 Refills Atorvastatin (Atorvastatin) 80 Mg Tab 80 MG PO HS for Cholesterol Management, #30 TAB 0 Refills Beclomethasone Inh (Qvar Inh) 80 Mcg/Act Aero 1 PUFF INH BID for Asthma Management, #1 INHALER 0 Refills Calcium Carbonate-Cholecalciferol (Calcium 600 with Vitamin D) 600-400 mg-Unit Tab 1 TAB PO DAILY for Calcium Supplement, TAB 0 Refills Cholecalciferol (Vitamin D3) 1,000 Unit Tab 1000 UNITS PO DAILY for Nutritional Supplement, #1 BOTTLE 0 Refills Coenzyme Q10 (Ubidecarenone) (Co Q 10) 100 Mg-5 Unit Cap 100 MG PO DAILY Enalapril (Enalapril) 10 Mg Tab 10 MG PO DAILY, #30 TAB 0 Refills Ezetimibe (Zetia) 10 Mg Tab 10 MG PO DAILY, #30 TAB 0 Refills Famotidine (Famotidine) 40 Mg Tab 40 MG PO HS, #30 TAB 0 Refills Fish Oil-Cholecalciferol (Fish Oil + D3) 1,200-1,000 Mg-Unit Cap 1 CAP PO DAILY for Nutritional Supplement, #30 CAP 0 Refills Isosorbide Mononitrate ER (Isosorbide Mononitrate ER) 120 Mg Hannah 120 MG PO DAILY for Prevent Chest Pain, #30 TAB 0 Refills Eleanor Leigh MD Jan 22, 2017 17:24
== END 2017-01-22 18:30 | disposition home or self-care (01) | DRG 417 ==
LOC: PHED 05:28 → PHEDA 06:53 → PH3A 08:13
PROVIDERS: ADMIT Hospitalist; ATTEND Hospitalist
PROC: 0FT44ZZ Resection of Gallbladder, Percutaneous Endoscopic Approach (ICD-10-PCS; principal; 2017-01-22 11:13)
DX: K81.0 Acute cholecystitis (principal); K85.10 Biliary acute pancreatitis without necrosis or infection; J44.9 Chronic obstructive pulmonary disease, unspecified; I10 Essential (primary) hypertension; I25.10 Atherosclerotic heart disease of native coronary artery without angina pectoris; E78.5 Hyperlipidemia, unspecified; H40.9 Unspecified glaucoma; I25.2 Old myocardial infarction; G47.00 Insomnia, unspecified; K59.00 Constipation, unspecified; K82.8 Other specified diseases of gallbladder; M19.90 Unspecified osteoarthritis, unspecified site; Z79.82 Long term (current) use of aspirin; Z87.891 Personal history of nicotine dependence; Z95.1 Presence of aortocoronary bypass graft; Z96.651 Presence of right artificial knee joint
CPT/HCPCS: 71010; 74177; 76705; 80048; 80053; 80074; 81001; 82550; 83605; 83690; 83735; 84484; 85025; 85610; 85730; 87040; 88304; 93005; 96361; 96374; 96375; 96376; C9113; J0690; J2250; J2270; J2405; J2930; J7030; J7040; J7613; Q9967